=== PATIENT | female | born 1965 | race Caucasian/White ===

== ENCOUNTER 2020-04-27 09:57 | Emergency (ER) | payer OTHER ==
[~2020-04-27] VITALS: Ht 170.2 cm; Wt 87.1 kg
[2020-04-27 10:30] VITALS: BP 148/93
--- NOTE | 2020-04-27 11:15 | Emergency Room Report ---
History of Present Illness General Chief Complaint: Eye Problems Source: Patient Present Illness HPI The patient states that she noted yesterday a "gritty" sensation in both of her eyes. She states that she also noted that the became red and irritated. She states they were also itchy and she was rubbing them. She did use an antiallergy drops in them last night but states that this morning when she woke up her eyes were more irritated and red. She noted that there was some crusting this morning when she woke up. She did wipe away the crusting. She has no blurry vision. She has no eye pain. She states that she did not get anything into her eyes. She had no chemical contact to her eyes. She has no other complaints. Allergies: Coded Allergies: No Known Allergies (Unverified , 04/27/20) COVID-19 Screening Contact w/high risk pt: No Experienced COVID-19 symptoms?: No COVID-19 Testing performed [employer]: No Patient History Past Medical History: none, see triage record Social History: Denies: smoking, alcohol use, drug use Reviewed Nursing Documentation: PMH: Agreed; PSxH: Agreed Nursing Documentation-PMH Past Medical History: No Stated History Review of Systems All Other Systems: negative except mentioned in HPI Physical Exam Vital Signs Date Time Temp Pulse Resp B/P (MAP) Pulse Ox O2 Delivery O2 Flow Rate FiO2 04/27/20 10:21 98.1 96 18 148/93 (111) 98 Room Air Sp02 EP Interpretation: reviewed, normal General Appearance: no apparent distress, alert, GCS 15, non-toxic Head: normocephalic, atraumatic Eyes: bilateral eye PERRL, bilateral eye other - Bilateral conjuctival erythema and mild conjunctival hemorrhage. Mild bilateral eyelid erythema and swelling. ENT: hearing grossly normal, normal pharynx, no angioedema, normal voice Neck: normal inspection Respiratory: no respiratory distress, no retraction, no accessory muscle use, speaking full sentences Rectal: deferred Musculoskeletal: back normal, normal range of motion, gait/station normal, non- tender Neurologic: alert, motor strength/tone normal, oriented x3, sensory intact, responsive, speech normal Psychiatric: judgement/insight normal, memory normal, mood/affect normal, no suicidal/homicidal ideation Skin: no rash, normal color Medical Decision Making Diagnostic Impression: Primary Impression: Conjunctivitis ER Course This patient has a physical exam and history consistent with viral versus bacterial conjunctivitis. The patient does not wear contacts. There is no evidence of keratitis or corneal ulcer. Also in my differential is allergic conjunctivitis. I will go ahead and give the patient Ilotycin for comfort and as a precaution. The patient is also instructed on warm compresses. There is no evidence of a vision threatening medical condition. The patient is instructed to follow-up with an [employer] supervisor as soon as possible. The patient is given close return precautions and follow-up instructions. Last Vital Signs Date Time Temp Pulse Resp B/P (MAP) Pulse Ox O2 Delivery O2 Flow Rate FiO2 04/27/20 10:30 98.1 18 148/93 98 Room Air 04/27/20 10:21 96 Status: improved Disposition: HOME, SELF-CARE Condition: Improved Patient Instructions: Viral Conjunctivitis Michelle Jane DO Apr 27, 2020 11:15
[2020-04-27] MEDS ORDERED: ERYTHROMYCIN3.5 GM BOTH EYES (11:17)
[2020-04-27 11:20] VITALS: BP 148/93
--- NOTE | 2020-04-27 11:20 | NUR ---
ED Nurse Note: Pt cleared by health care Provider for discharge. DC instructions/prescription was given and explained to pt and verbalized understanding of teachings. All medical deviecs such as ID band removed. Pt is AAO x4, ambulatory and left with all personal belongings.
== END 2020-04-27 11:30 | disposition home or self-care (01) ==
LOC: EMR 11:09
DX: H10.9 Unspecified conjunctivitis (principal)
CPT/HCPCS: 99281